=== PATIENT | male | born 1995 | race Two or more races ===

== ENCOUNTER 2018-06-03 23:51 | Emergency (ER) | payer OTHER ==
[~2018-06-03] VITALS: Ht 172.7 cm; Wt 67.6 kg
[2018-06-04] MEDS ORDERED: NKM (00:18)
--- NOTE | 2018-06-04 01:01 | Emergency Room Report ---
History of Present Illness General Chief Complaint: Lower Extremity Injury Source: Patient Present Illness HPI Patient is 22-year-old male presented after increased right ankle and foot pain. Patient reportedly had fallen down stairs earlier in the day. He reports having increased pain with weightbearing. He denies any other areas of pain. He reports having increased pain with lateral movements of his ankle.The patient denies any numbness or weakness. He had been able to bear weight. Allergies: Coded Allergies: No Known Allergies (Unverified , 06/04/18) Patient History Past Medical History: see triage record Reviewed Nursing Documentation: PMH: Agreed; PSxH: Agreed Nursing Documentation-PMH Past Medical History: No Stated History Review of Systems All Other Systems: negative except mentioned in HPI Physical Exam Vital Signs Date Time Temp Pulse Resp B/P (MAP) Pulse Ox O2 Delivery O2 Flow Rate FiO2 06/04/18 00:15 98.3 83 16 139/95 99 Room Air 98.2 General Appearance: well appearing, no apparent distress, alert, GCS 15 Head: normocephalic, atraumatic ENT: hearing grossly normal, normal voice Neck: full range of motion, supple Respiratory: no respiratory distress, speaking full sentences Cardiovascular #1: normal inspection, normal peripheral pulses, regular rate, rhythm, no edema Gastrointestinal: normal inspection, normal bowel sounds, soft Musculoskeletal: normal inspection, no calf tenderness Neurologic: normal inspection, alert, oriented x3, responsive, normal gait Psychiatric: mood/affect normal Skin: no rash Medical Decision Making Diagnostic Impression: Primary Impression: Sprain of foot, right ER Course Patient presented for ankle pain. Differential diagnosis included was not limited to sprain, fracture, dislocation, cellulitis, vascular insufficiency. X -ray imaging of the ankle was ordered. X-ray of the ankle 3 views interpreted by me showed bony alignment without fracture. X-ray of the foot 3 views interpreted by me showed normal bony alignment without evident fracture dislocation. The patient was given Sami wrap and crutches.The patient is advised to follow up with primary care doctor. Patient is advised to return if any worsening condition or if any changes in status that are concerning. This report is dictated with [employer] manager ccu software which may occasionally lead to discrepancies related to use of this software. Last Vital Signs Date Time Temp Pulse Resp B/P (MAP) Pulse Ox O2 Delivery O2 Flow Rate FiO2 8/17/18 00:15 98.3 83 16 139/95 99 Room Air 98.2 Status: improved Disposition: HOME, SELF-CARE Condition: Stable Scripts Ibuprofen* (MOTRIN*) 600 Mg Tablet 600 MG ORAL Q8H PRN for For Pain, #30 TAB 0 Refills Prov: Ulises Diamond MD 06/04/18 Ulises Diamond MD Jun 04, 2018 01:01
[2018-06-04] MEDS ORDERED: IBUPROFEN600 MG ORAL (01:43)
[2018-06-04 01:50] VITALS: BP 139/95
--- NOTE | 2018-06-04 09:07 | Diagnostic Imaging Report ---
Indication: Foot pain Technique: 3 views right foot Comparison: none Findings: No acute fractures. No dislocations. The joint spaces are preserved. There is slight pes cavus deformity. 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
--- NOTE | 2018-06-04 09:08 | Diagnostic Imaging Report ---
Indication: Right ankle pain after falling Technique: 3 views of the right ankle Comparison: none Findings: No acute fractures. No dislocations. Joint spaces are preserved. Normal mineralization. No radiopaque foreign body. Small bone island is seen in the talus Impression: Negative
== END 2018-06-04 01:50 | disposition home or self-care (01) ==
LOC: EMR 06-04 00:30
DX: S93.601A Unspecified sprain of right foot, initial encounter (principal); W10.9XXA Fall (on) (from) unspecified stairs and steps, initial encounter; Y93.9 Activity, unspecified; Y92.9 Unspecified place or not applicable
CPT/HCPCS: 99283